=== PATIENT | female | born 2005 | race Caucasian/White ===

== ENCOUNTER 2023-12-23 09:42 | Outpatient (CLI) | payer OTHER, SELFPAY ==
[2023-12-23] VITALS (12 sets, daily range): BP systolic 126–158; BP diastolic 66–87; PULSE 75–91; RESP 16; TEMP 36.9; O2SAT 98; BMI 34.8
[2023-12-23 10:35] LABS: Hematocrit 37.9 % (37-47); Hemoglobin 11.9 g/dL (12.0-15.0); Mean Corp Hgb Conc 31.4 g/dL (32-36); Mean Corpuscular Hgb 24.4 pg (27.0-32.0); Mean Corpuscular Volume 77.8 fL (81-99); Mean Platelet Vol. 11.5 fl (6.2-12.0); Platelet Count 188 K/mm3 (150-450); RBC Distribution Width CV 13.8 % (11.6-14.6); RBC Distribution Width SD 38.5 fl (35.1-43.9); Red Blood Count 4.87 M/mm3 (4.2-5.4); White Blood Count 8.7 K/mm3 (4.4-11.0)
[2023-12-23 10:56] LABS: AST(SGOT) 21 U/L (15-37); Alanine Aminotransfer ALT/SGPT 14 U/L (13-56); Creatinine, Serum 0.72 mg/dL (0.55-1.02); EST Glomerular Filtration Rate 110 mL/min (>60); Est Glom Filt Rate - Afr Amer 133 mL/min (>60); Estimated Creatinine Clearance 142.06 ml/min; Uric Acid 7.7 mg/dL (2.6-6.0)
[2023-12-23 11:01] LABS: Protein:Creat Ratio 1987 mg/g CRE (0-200)
[2023-12-23] MEDS: NIFEdipine 30 MG Tablet PO (12:26)
--- NOTE | 2023-12-23 13:00 | OB.TRI.NOTE ---
HPI - General HPI Narrative MARCIA MILLER, is a 18 F at 35.5 weeks who presents to triage with elevated blood pressures at home. Patient reports she was seen in office 2 days ago and was started on blood pressure medications but has not taken to date. She is monitoring her BP at home and today was getting readings of 160/101 and 132/106. PFSH PFS Medical History Non-smoker Gestational diabetes Home Medications ?Medication ?Instructions ?Recorded ?Last Taken ?Type vit no.95-ferrous 1 tab PO DAILY 12/01/23 12/16/23 08:00 History fumarate 28 mg-folic acid 800 mcg 1 TAB tablet () Allergy/AdvReac Type Severity Reaction Status Date / Time sweet potato Allergy Unknown PT UNSURE Verified 12/23/23 10:16 OF REACTION No Known Drug Allergies AdvReac Mild Other Verified 12/23/23 10:17 Surgical History (Updated 12/01/23 @ 12:56 by Daniella Ballard) History of nasal surgery History of spinal fusion for scoliosis Social History Smoking Status: Never smoker ROS Eyes Eyes: Denies blurry vision Cardiovascular Cardiovascular: Reports none; Denies chest pain at rest, chest pain with activity or dizziness Respiratory/Chest Respiratory/Chest: Denies cough or dyspnea Gastrointestinal Gastrointestinal: Reports none and other; Denies diarrhea or vomiting Genitourinary Genitourinary: Denies dysuria Musculoskeletal Musculoskeletal: Reports none Integumentary Integumentary: Reports none; Denies rash Neurologic Neurologic: Denies dizziness, headache(s) or other visual disturbances Psychiatric Psychiatric: Reports none Physical Exam Const alert and no apparent distress General Appearance: cooperative Orientation / Consciousness: awake Exam Limitations: no limitations HEENT normocephalic Eyes General Eye: normal appearance of both eyes Neck full ROM Chest inspection of chest normal Resp normal respiratory effort and normal air movement Effort and Inspection: symmetric chest movement Auscultation: clear to auscultation bilaterally Cardio regular rate GI soft to palpation, non-tender and non-distended Inspection: and other Back/Spine normal ROM Extremity full ROM, normal capillary refill and no calf tenderness Skin no rashes or lesions noted Neuro oriented x3 and CN's II-XII intact bilaterally Psych mental status grossly normal NST FHR Rate Baby A Baseline: 125 Variability:: Moderate Accelerations:: 15 x 15 Decelerations:: None NST Reactive:: Yes FHR Category:: Category I Uterine Activity:: Irregular Assessment & Plan (1) 35 weeks gestation of : (2) Pre-eclampsia: (3) Elevated blood pressure reading: PLAN: Plan No severe range pressures in triage NST reactive PIH labs collected and sent S/P Steroid injection (x1 only due to patient having a reaction and did not receive 2nd dose) Procardia 30 mg XL PO x1 dose now Patient to picking supervisor BP medications and take according to directions Continue to monitor BP at home and report any readings >160/110 D/C home with follow up in office tomorrow Dr. García involved with orders and plan of care
== END 2023-12-23 12:28 | disposition home or self-care (01) ==
LOC: WPOUT 10:00 → WP 10:01
PROVIDERS: Referring Provider Advanced Practice Midwife; Visit Provider Advanced Practice Midwife
DX: O14.93 Unspecified pre-eclampsia, third trimester (principal); Z3A.35 35 weeks gestation of pregnancy
CPT/HCPCS: 36415; 59025; 59050; 82565; 82570; 84156; 84450; 84460; 84550; 85027; 99221; G0378

== ENCOUNTER 2023-12-26 19:16 | Inpatient (IN) | payer OTHER, SELFPAY ==
[2023-12-26 19:18] VITALS: BMI 34.9
[2023-12-26 19:35] VITALS: PULSE 77; RESP 14; TEMP 37; O2SAT 98
[2023-12-26 19:36] VITALS: BP 147/81; PULSE 78; TEMP 37
[2023-12-26 20:07] LABS: Absolute Neutrophil Count 6.6 X10^3/uL (2.0-7.7); Basophil# 0.02 X10^3/uL; Basophil% 0.2 % (0-1); Eosinophil# 0.08 X10^3/uL; Eosinophils% 0.8 % (0-5); Hematocrit 36.3 % (37-47); Hemoglobin 11.6 g/dL (12.0-15.0); Lymphocyte % 18.6 % (19-41); Mean Corpuscular Hgb 24.8 pg (27.0-32.0); Mean Corpuscular Volume 77.7 fL (81-99); Mean Platelet Vol. 11.5 fl (6.2-12.0); Monocyte# 1.15 X10^3/uL; Monocyte% 11.9 % (0-10); NRBC Flagged by Analyzer 0 % (0-5); Neutrophil # 6.57 X10^3/uL (2.7-7.7); Neutrophil % 67.9 % (47-70); Platelet Count 209 K/mm3 (150-450); RBC Distribution Width CV 14.1 % (11.6-14.6); RBC Distribution Width SD 39.3 fl (35.1-43.9); Red Blood Count 4.67 M/mm3 (4.2-5.4); White Blood Count 9.7 K/mm3 (4.4-11.0)
[2023-12-26 20:44] LABS: Bedside Glucose 85 mg/dL (74-106)
[2023-12-26 21:04] LABS: Bedside Glucose 87 mg/dL (74-106)
[2023-12-26] MEDS: miSOPROStol 25 MCG TABLET PO (21:10)
[2023-12-26] MEDS: NIFEdipine 30 MG Tablet PO (21:10)
--- NOTE | 2023-12-26 22:27 | PCM.HP.OB ---
HPI - General General Date of Admission: 12/26/23 HPI Narrative MARCIA MILLER, is a 18 F who presents at 36w1d for induction of labor due to preeclampsia with increasing Urine P/C ratio, uric acid, and blood pressure. Maternal Data Information NICHOLAS Calculator Estimated Delivery Date Method Current WG Current Estimate 01/22/24 Manual 36w 1d PFSH PFSH Medical History (Updated 12/26/23 @ 22:35 by Darcy Biswas CNM) Non-smoker Gestational diabetes Home Medications ?Medication ?Instructions ?Recorded ?Last Taken ?Type vit no.95-ferrous 1 tab PO DAILY ask provider 12/01/23 12/16/23 08:00 History fumarate 28 mg-folic acid 800 mcg 1 TAB tablet () nifedipine 30 mg tablet,extended 30 mg PO DAILY blood pressure 12/26/23 Unknown History release 24 hr (Procardia XL) Allergy/AdvReac Type Severity Reaction Status Date / Time shellfish derived Allergy Mild Food Verified 12/26/23 19:56 Allergy sweet potato Allergy Unknown PT UNSURE Verified 12/23/23 10:16 OF REACTION No Known Drug Allergies AdvReac Mild Other Verified 12/23/23 10:17 Surgical History (Updated 12/26/23 @ 22:34 by Darcy Biswas CNM) History of surgery History of nasal surgery History of spinal fusion for scoliosis Social History Smoking Status: Former smoker History Elective abortions Hx Para 0 Spontaneous abortions Hx # Term Pregnancies Ectopic pregnancies Hx # Pregnancies Multiple births # of living children ROS Constitutional Constitutional: Reports systems reviewed and no addt'l complaints, except as documented; Denies headache(s) Eyes Eyes: Denies acute decrease in peripheral vision, blurry vision or change in vision ENT HEENT: Reports systems reviewed and no addt'l complaints, except as documented Cardiovascular Cardiovascular: Denies chest pain or dizziness Respiratory/Chest Respiratory/Chest: Denies cough, dyspnea, dyspnea on exertion, shortness of breath at rest or shortness of breath with exertion Gastrointestinal Gastrointestinal: Denies abdominal pain, diarrhea, nausea or vomiting Genitourinary Genitourinary: Denies abdominal discomfort Musculoskeletal Musculoskeletal: Denies limited range of motion Integumentary Integumentary: Reports systems reviewed and no addt'l complaints, except as documented Neurologic Neurologic: Reports systems reviewed and no addt'l complaints, except as documented Psychiatric Psychiatric: Reports systems reviewed and no addt'l complaints, except as documented Endocrine Endocrinology: Reports systems reviewed and no addt'l complaints, except as documented Hematologic/Lymphatic Hematologic/Lymphatic: Reports systems reviewed and no addt'l complaints, except as documented Allergic/Immunologic Allergic/Immunologic: Reports systems reviewed and no addt'l complaints, except as documented Vital Signs Vital Signs Vital Signs: 12/26/23 19:35 12/26/23 19:35 12/26/23 19:35 Temperature Temperature Source Temporal Pulse Rate 77 Respiratory Rate Blood Pressure BP Systolic BP Diastolic Pulse Ox 98 12/26/23 19:35 12/26/23 19:35 12/26/23 19:36 Temperature 98.6 F Temperature Source Pulse Rate Respiratory Rate 14 Blood Pressure 147/81 H BP Systolic 147 BP Diastolic 81 Pulse Ox 12/26/23 19:36 12/26/23 19:36 Temperature 98.6 F Temperature Source Pulse Rate 78 Respiratory Rate Blood Pressure BP Systolic BP Diastolic Pulse Ox Weight Weight: 210 lb Body Mass Index (BMI) 34.9 Physical Exam Const alert and oriented x3 General Appearance: cooperative Orientation / Consciousness: awake, oriented to person, oriented to place and oriented to time Exam Limitations: no limitations HEENT normocephalic Head and Scalp: normal to inspection, normocephalic and atraumatic Face and Sinus: normal facial exam Eyes General Eye: normal appearance of both eyes Neck full ROM Chest Chest: symmetrical chest wall rise Resp normal respiratory effort and normal air movement Auscultation: clear to auscultation bilaterally Cardio regular rate, regular rhythm, S1 normal heart sound, S2 normal heart sound, no murmurs, no rub, no gallops and no clicks GI normal to inspection, nondistended, normoactive bowel sounds and non-tender appearance of the vagina normal Narrative: 1cm/50%/-3 IBOW. Chapin inserted through cervix without difficulty, 30ml NS instilled Bladder / Kidney Exam: no CVA tenderness Back/Spine normal ROM Extremity normal to inspection and full ROM Skin no rashes or lesions noted Neuro oriented x3, CN's II-XII intact bilaterally and moves all extremities Sensorium / Orientation: awake, alert and oriented to person Motor Exam: clonus absent Deep Tendon Reflexes: Rt Patellar (L4): 2+ and Lt Patellar (L4): 2+ Labs Labs Labs: Blood Type O POSITIVE Antibody Screen NEGATIVE Hct 36.3 % (37-47) L Hgb 11.6 g/dL (12.0-15.0) L Syphilis Total Ab Pending GBS negative RPR negative Rubella Immune O positive HIV negative HBsAG negative HepC negative Assessment & Plan (1) Pre-eclampsia: (2) 36 weeks gestation of : (3) GDM, class A1: (4) PTSD (post-traumatic stress disorder): (5) ADHD: (6) History of spinal fusion: COMMENT: Spinal fusion to L3, anesthesia consult completed. (7) Late care: (8) Obesity affecting : (9) alcohol syndrome: PLAN: Plan 1) Admit to labor and delivery 2) Routine labs 3) Continuous EFM 4) Pain management upon request 5) Preeclampsia labs 6) Diabetic protocol 7) Cytotec PO and chapin for cervical ripening and then pitocin. 8) collaborative physician and notified of patient status, above assessment, and plan.
[2023-12-26 23:03] LABS: ALB/GLOB Ratio 0.6 RATIO (0.9-2.4); AST(SGOT) 20 U/L (15-37); Alanine Aminotransfer ALT/SGPT 17 U/L (13-56); Albumin, Serum 2.6 g/dL (3.2-5.0); Alkaline Phosphatase 162 U/L (45-117); Anion Gap 9 (5-15); BUN 15 mg/dL (7-18); BUN/Creat Ratio 16.6 RATIO (10-20); Calcium,Total 9.1 mg/dL (8.5-10.1); Chloride 110 mmol/L (98-107); EST Glomerular Filtration Rate 84 mL/min (>60); Est Glom Filt Rate - Afr Amer 102 mL/min (>60); Estimated Creatinine Clearance 113.81 ml/min; Globulin 4.1 g/dL (2.2-4.2); Glucose 81 mg/dL (74-106); Protein, Total 6.7 g/dL (6.4-8.2); Sodium Level 140 mmol/L (136-145); Uric Acid 8.6 mg/dL (2.6-6.0)
[2023-12-26 23:04] VITALS: PULSE 76; RESP 14; TEMP 36.7; O2SAT 98
[2023-12-26 23:05] VITALS: BP 141/81; PULSE 73
[2023-12-26 23:30] LABS: Protein, Urine (Random) 366.8 mg/dL (<11.9); Protein:Creat Ratio 1993 mg/g CRE (0-200)
[2023-12-27] VITALS (27 sets, daily range): BP systolic 112–148; BP diastolic 60–106; PULSE 73–114; RESP 14–18; TEMP 36.6–37.7; O2SAT 97–100
[2023-12-27] MEDS: Lactated Ringers 1,000 ML 50 ML IV (01:01)
[2023-12-27] MEDS: Oxytocin 15 Units/NS 250ml 15 UNITS/250 ML IV.SOLN 2 UNITS IV (01:01)
[2023-12-27 01:21] LABS: Bedside Glucose 87 mg/dL (74-106)
[2023-12-27 05:40] LABS: Bedside Glucose 84 mg/dL (74-106)
--- NOTE | 2023-12-27 08:25 | PCM.PN.BLA ---
Progress Note Pt seen at bedside discussed Plan of care- AROM. Pt unable to get epidural for pain relief due to spinal fusion per anesthesia. AROM perform- does not tolerate vaginal exam well. Small amount of clear fluid. /2. Discussed with patient all options for pain mgmt including Nitrous, water therapy, if patient can't tolerate pain she was given option for primary elective cs. pt understands this will be under general anesthesia. all questions answered.
[2023-12-27] MEDS: Acetaminophen 500 MG Tablet PO (08:28)
[2023-12-27] MEDS: Sodium Citrate/Citric Acid 30 ML UDC PO (09:33)
--- NOTE | 2023-12-27 09:38 | PCM.PN.BLA ---
Progress Note After discussion regarding pain during labor I was informed that patient had decided she would like to proceed with elective CS. I discussed the case with Dr. Herrera in regards to options for Spinal vs epidural and what her PEDS ortho had reference in EPIC note - he too agrees her pain will likely not be adequate controlled for delivery. This was a shared medical decision and patient was given options to proceed with induction of labor or elective Primary cs and has chosen to proceed with elective Primary CS. All teams notified.
[2023-12-27] MEDS: Cefazolin 2 GM in 0.9% Normal Saline (100mL Bag) 100 ML IV (09:45)
--- NOTE | 2023-12-27 09:57 | PLAC_PTH ---
PATIENT: MARCIA MILLER LOC: [facility] U#:[id number] AGE/SX: 18/F ROOM: [facility] RE12/26/[address]: Dr. Colleen Gonzalez, MDDOB: 2005 BED: 1 DIS: 12/31/2023 SPEC #: [id number] RECD: 12/28/23 11:11 STATUS: JOSE MELANY #: [id number] ADAN: 12/27/23 09:[address]: Colleen Gonzalez DEPT: SURGICAL PATHOLOGY RECD BY: Bronson Marcus ENTERED: 12/28/23 11:11 SP TYPE: PLACENTA OTHR DR: Darcy Biswas CNM No Primary Care Phys Tissues: Placenta, NOS Procedures: Surgery Specimen Level V HEADER OPERATION: Primary section PRE-OP DIAGNOSIS: Delivery TISSUE SUBMITTED: Placenta MICROSCOPIC DIAGNOSIS Ying placenta (363 gm): Umbilical cord - Trivascular with no evidence of inflammation. Placental membranes - Mild decidual acute inflammation. Placental disc - Multiple foci of villous hemangiomas with focal degenerative change, increased intraparenchymal microcalcifications, villous syncytial knots and fibrin plaques. AM: 12/29/2023 COMMENT Case has been reviewed in consultation with Dr. Charles who concurs with the above diagnosis. IDC:ZE Called the office on 12/27/2023 and spoke to the nurse about the Chromosomal study that were on the order for placenta. Nurse asked Dr. Camacho if Chromosomal study was to be done and Dr. Camacho said that she only wants routine pathology study for the placenta and no chromosomal studies. MICROSCOPIC DESCRIPTION Slides are reviewed. GROSS DESCRIPTION SPECIMEN: PLACENTA / CLINICAL INFORMATION: A. Weight: 2.19 kg B. Gestational Age: 36 weeks C. Sex: Male PLACENTAL WEIGHT (POST FIXATION):363 gm PLACENTAL DIMENSIONS: 14.0 x 13.0 x 4.0 cm PLACENTAL SHAPE: Usual ovoid and is partly disrupted, however appears to be complete PLACENTAL WEIGHT FOR GESTATIONAL AGE: Within 10-99th percentile MEMBRANES - Present A. Insertion: Marginal B. Site of rupture from edge: at the margin of placental disc C. Color of membrane: Mauricio-morgan D. Abnormalities: None UMBILICAL CORD - Present A. Color: Mauricio-morgan B. Insertion: Paracentral C. Length: 28.0 cm D. Diameter: 0.8 cm E. Number of vessels: Three F. Abnormalities: None PLACENTAL DISC - Present A. Color of surface: Mauricio-morgan B. surface abnormalities: None C. Maternal cotyledons: Intact with minimal tears D. Attached retro placental clot: No clot E. Cut surface: Dark red and spongy F. Lesions: None G. Separate clot: Absent SECTIONS SUBMITTED: Dr. Charles (6 cassettes) - remove if Dr. Paz 1. Membrane roll 2. Cord, maternal end 3. Cord, end 4. Placental disc, and maternal surfaces 5. Placental disc, and maternal surfaces 6. Placental disc, and maternal surfaces SJ. 12/28/2023 TC:5 CPT: 85982
[2023-12-27] MEDS: Azithromycin 500 MG in Dextrose 5%-Water (250mL Bag) 250 ML 250 MG IV (10:13)
--- NOTE | 2023-12-27 10:40 | EX.PCM.OBRPT ---
Maternal Data Information NICHOLAS Calculator Estimated Delivery Date Method Current WG Current Estimate 01/22/24 Manual 36w 2d Details Operative Information Date of Procedure: 12/27/23 Pre-Operative Diagnosis: Preeclampsia w/o severe features, 36 weeks, GDMA1, obesity affecting , History of spinal fusion, elective primary c/s- due to poor pain tolerance Post-Operative Diagnosis: same- live male infant Indications Narrative: patient with h/o Spinal fusion- case was previously discussed with her PEDS ortho who stated would unlikely be able to get spinal or epidural. case discussed with anesthesia at [facility] who agreed that her pain would likely not be controlled due to fusion of epidural space. pt was counseled on pain management options- does not tolerate exams, is painful and not in labor. after discussion - shared medical decision was to perform elective primary c/s. Classification: KIERSTEN (at discretion of anesthesia and staffing availability - this was non emergent but did not want patient to become more uncomfortable.) Procedure Type: low transverse purse seining hand #1: Aria Moore purse seining hand #2: elizabeth tyson Type of Anesthesia: General Special Medications: hemoblast Antibiotic Given: Ancef 2 grams IV x1 and Zithromax 500 mg/5 mL X1 Drain: Webb to straight drain Estimated Blood Loss: 600 Fluids Replaced: 800 Procedure Start Time: 09:55 Procedure Stop Time: 10:27 Time of Delivery: 09:57 Findings Description of Procedure: After informed consent was obtained the patient was taken the operating room She was then placed in the supine position. She was prepped and draped in the normal sterile fashion. General Anesthsia was induced- At this time a Pfannenstiel skin incision was made with a knife was carried down to the underlying layer of the fascia. The fascial incision was then extended laterally using traction. Rectus muscles were then in the midline bluntly and peritoneum was entered bluntly. Gentle opposing traction was placed. At this time the vesicouterine peritoneum was identified. Scalpel was used to make a uterine incision in a low transverse fashion. The uterus was then entered bluntly gentle opposing traction was placed to extend this incision. Membranes were ruptured clear. Infant's head was brought to the uterine incision was delivered atraumatically. Nuchal x 1, tight- reduced. was vigorous at delivery - no delayed cord clamping. Cord was clamped and cut infant was handed to the waiting nursery team. The Placenta was removed from the uterus. The uterus was then removed from the abdominal cavity. The uterus was cleared of all clots and debris using a lap. At this time the uterine incision was reapproximated using #1 Vicryl in a running locked fashion. Hemostasis was appreciated. Posterior cul-de-sac was then cleared of all clots and debris. Uterus was placed back in the abdominal cavity. Gutters were cleared of all clots and debris. Uterine incision was reevaluated and noted to be of excellent hemostasis. Hemoblast placed over incision. At this time the peritoneum was grasped with Kellys reapproximated using #2 Vicryl suture in a running fashion. Fascia was then reapproximated using #1 PDS in a running fashion. Subcu layer was irrigated with NS, hemoblast placed, it was reapproximated with #3 vicryl suture in an interrupted fashion. Subcu layer was closed using 4-0 Viryl in a subcu fashion. Dry sterile dressing was applied. Instrument lap needle count correct ?2. Anticipated normal postoperative course. Presentation: Positive for Vertex Amniotic Membrane Rupture Type: Artificial Amniotic Fluid Description: Clear Placental Delivery Description: Manual Removal Placenta Disposition: Routine to Lab Specimen(s) Sent to Pathology: placenta Cord Vessel Description: 3 Vessels Cord Entanglement: Around neck x 1, tight Nuchal Cord Compression: Without compression Cord Gases: ABG and VBG Infant A Gender: Male (1 minute): 8 (5 minute): 9 Delayed Cord Clamping: No Complications Risks of Surgery Discussed w/Patient: Bleeding, Anesthesia Risks, Infection, Need for Future C-Sections (discussed with SO this would be in her best interest ) and Injury to surrounding structure(s) including bowel and bladder Complications: none
[2023-12-27] MEDS: Oxytocin 15 Units/NS 250ml 15 UNITS/250 ML IV.SOLN 83 UNITS IV (10:50)
[2023-12-27 11:20] LABS: Pathology Specimen OB SEE PATHOLOGY REPORT
[2023-12-27] MEDS: Ketorolac 30 MG/ML Syringe IV ×3 (11:34→23:11)
[2023-12-27] MEDS: NIFEdipine 30 MG Tablet PO (11:54)
[2023-12-27 13:16] LABS: Bedside Glucose 109 mg/dL (74-106)
[2023-12-27] MEDS: oxyCODONE 5 MG Tablet PO ×2 (13:45→20:08)
[2023-12-27] MEDS: Lactated Ringers 1,000 ML 100 ML IV (13:51)
--- NOTE | 2023-12-27 15:07 | NURSING ---
Call placed to [facility] and left message with nurse Kvng Hair RN for Dr. Camacho. Reported the last 8 BP's during pts recovery and that she had her 30mg of Procardia XL at 1200. Blood Pressures are running in the 140's for systolic and ranging 80's to 100's diastolic. Waiting to hear back from Dr. Camacho about whether she would like to increase her BP medication or add another one.
--- NOTE | 2023-12-27 15:13 | NURSING ---
Nurse Reginaldo RN from [facility] calls back. States that she spoke with Dr. Camacho and she does not want to add medication or increase her procardia at this time. Reporting off primary care to Jayy Zarate RN at this time. Nicola Zarate will report higher trending BP's to Dr. Camacho from here.
[2023-12-27] MEDS: Acetaminophen 500 MG Tablet 1000 MG PO ×2 (15:15→21:04)
--- NOTE | 2023-12-27 17:26 | NURSING ---
patient unsteady from csection, has not been out of bed, RN to assist when patient gets out of bed for first time
[2023-12-27] MEDS: HYDROmorphone 1 MG/ML Syringe IV (23:03)
[2023-12-27] MEDS: Enoxaparin 40 MG/0.4 ML Syringe SC (23:03)
[2023-12-27] MEDS: 0.9% Saline Lock 10 ML Syringe IV (23:04)
--- NOTE | 2023-12-27 23:41 | NURSING ---
This RN in Room with Kaela Moralez RN when This Rn could not resign into computer to scan medications. This RN pulled dilauded out of [employer] and was in room and gave dilauded with Kaela Moralez who scanned medications.
--- NOTE | 2023-12-28 01:38 | NURSING ---
This RN at bedside emptying catheter. Urine is very dark yellow and concentrated. Pt states she was not really drinking much water. This RN educated at beginning of shift about needing to continue to orally hydrate after her bag of LR was completed around 2300 with a goal of discontinue catheter tonight and being able to void in the toilet. Patient needs extensive help when getting out of bed due to the pain. This RN just emptied catheter for 300 cc out and hourly output equaling been 25 ml/hr.
[2023-12-28] MEDS: Acetaminophen 500 MG Tablet 1000 MG PO ×4 (03:04→21:58)
[2023-12-28 03:15] VITALS: BP 134/82; PULSE 79; RESP 16; TEMP 36.8; O2SAT 97
[2023-12-28] MEDS: Ketorolac 30 MG/ML Syringe IV (05:05)
[2023-12-28 05:48] LABS: Bedside Glucose 82 mg/dL (74-106)
[2023-12-28 06:33] LABS: Hematocrit 33.4 % (37-47); Hemoglobin 10.3 g/dL (12.0-15.0); Mean Corp Hgb Conc 30.8 g/dL (32-36); Mean Corpuscular Hgb 24.3 pg (27.0-32.0); Mean Platelet Vol. 11.8 fl (6.2-12.0); Platelet Count 186 K/mm3 (150-450); RBC Distribution Width CV 14.6 % (11.6-14.6); RBC Distribution Width SD 41.1 fl (35.1-43.9); Red Blood Count 4.23 M/mm3 (4.2-5.4); White Blood Count 11.5 K/mm3 (4.4-11.0)
--- NOTE | 2023-12-28 08:39 | PN.OBGYN_ITS ---
Subjective Subjective Pain controlled Objective Data Objective Data Vital Signs: Vital Signs Temp Pulse Resp BP Pulse Ox O2 Del Method 98.2 F 79 16 134/82 H 97 Room Air 12/28/23 03:15 12/28/23 03:15 12/28/23 03:15 12/28/23 03:15 12/28/23 03:15 12/28/23 03:15 Oxygen Delivery Method Room Air Weight: 210 lb Body Mass Index (BMI) 34.9 Intake & Output: Intake and Output for Last 24 Hours 12/26/23 12/27/23 12/28/23 23:59 23:59 23:59 Intake Total 1865.00 / 1865.00 1000 / 1000 Output Total 900 / 900 300 / 300 Balance 965.00 / 965.00 700 / 700 Lab / Micro Data 12/28/23 06:00 12/26/23 19:50 Labs: Laboratory Results - last 24 hr 12/27/23 12:26: POC Glucose 109 H 12/28/23 05:24: POC Glucose 82 12/28/23 06:00: WBC 11.5 H, RBC 4.23, Hgb 10.3 L, Hct 33.4 L, MCV 79.0 L, MCH 24.3 L, MCHC 30.8 L, RDW Std Deviation 41.1, RDW Coeff of Kristen 14.6, Plt Count 186, MPV 11.8 Physical Exam Const alert, oriented x3 and no apparent distress HEENT normocephalic GI soft to palpation, non-tender and non-distended GI Narrative: fundus firm, mid & below umbilicus Incision - bandage c/d/i Extremity normal to inspection and no calf tenderness Assessment & Plan (1) Pre-eclampsia: QUALIFIERS: Trimester: unspecified trimester Qualified Code(s): O 14.90 - Unspecified pre-eclampsia, unspecified trimester COMMENT: POD#1 (2) GDM, class A1: (3) PTSD (post-traumatic stress disorder): (4) Delivery by section: PLAN: Plan Heme - HDS, cbc reviewed ID - AF, no signs infection GI/ - no issues PreE - continue procardia Routine care
[2023-12-28 10:00] VITALS: PULSE 88; RESP 16; TEMP 36.6
[2023-12-28] MEDS: Senna/Docusate Sodium 1 Tablet PO (10:12)
[2023-12-28] MEDS: NIFEdipine 30 MG Tablet PO (10:12)
[2023-12-28] MEDS: Ibuprofen 600 MG Tablet PO ×3 (11:44→23:24)
[2023-12-28] MEDS: oxyCODONE 5 MG Tablet PO (14:29)
[2023-12-28 15:52] VITALS: BP 135/71; PULSE 82; RESP 16; TEMP 36.4; O2SAT 97
[2023-12-28 20:27] VITALS: BP 143/85; PULSE 84; RESP 16; TEMP 36.6; O2SAT 98
[2023-12-29] MEDS: Enoxaparin 40 MG/0.4 ML Syringe SC ×2 (01:32→23:52)
[2023-12-29] MEDS: oxyCODONE 5 MG Tablet PO ×3 (01:38→20:20)
[2023-12-29 02:30] VITALS: BP 135/74; PULSE 83; RESP 16; TEMP 36.4; O2SAT 95
[2023-12-29] MEDS: Acetaminophen 500 MG Tablet 1000 MG PO ×4 (04:00→22:10)
[2023-12-29] MEDS: Ibuprofen 600 MG Tablet PO ×4 (05:34→23:51)
--- NOTE | 2023-12-29 08:26 | PCM.PROGNOTE ---
Subjective Subjective patient seen at bedside, doing well. Patient reports good pain control. lochia mild. breast and bottle feeding. BM x 1, voiding w/o difficulty. tolerating regular diet. Objective Data Objective Data Vital Signs: Vital Signs Temp Pulse Resp BP Pulse Ox O2 Del Method 97.6 F L 83 16 135/74 H 95 Room Air 12/29/23 02:30 12/29/23 02:30 12/29/23 02:30 12/29/23 02:30 12/29/23 02:30 12/29/23 02:30 Oxygen Delivery Method Room Air Weight: 95.254 kg Body Mass Index (BMI) 34.9 Intake & Output: Intake and Output for Last 24 Hours 12/27/23 12/28/23 12/29/23 23:59 23:59 23:59 Intake Total 1865.00 / 1865.00 1000 / 1000 Output Total 900 / 900 1150 / 1150 Balance 965.00 / 965.00 -150 / -150 Lab / Micro Data 12/28/23 06:00 12/26/23 19:50 Physical Exam Narrative Abd: dressing dry and intact. Fundus firm. mild tenderness to palpation- appropriate. Const alert and oriented x3 General Appearance: cooperative HEENT normocephalic Neck General: normal visual inspection GI soft to palpation and non-distended GI Narrative: Fundus firm Extremity normal to inspection and no calf tenderness Skin no rashes or lesions noted Neuro oriented x3 and CN's II-XII intact bilaterally Psych mental status grossly normal Assessment & Plan Assessment/Plan (1) Delivery by section: (2) alcohol syndrome: (3) Obesity affecting : (4) Late care: (5) History of spinal fusion: (6) ADHD: (7) GDM, class A1: (8) PTSD (post-traumatic stress disorder): PLAN: Plan POD#2 , Doing well Routine care pain mgmt ambulation baby in SCN Continue to monitor and will plan for dc home or to hotel status tomorrow- Keep for pain mgmt today monitor BP- Continue Procardia 30xl - well controlled today
[2023-12-29 09:41] VITALS: BP 138/83; PULSE 89; RESP 16; TEMP 36.6
[2023-12-29] MEDS: NIFEdipine 30 MG Tablet PO (10:33)
[2023-12-29] MEDS: Senna/Docusate Sodium 1 Tablet PO (10:33)
[2023-12-29 16:06] VITALS: BP 142/81; PULSE 87; RESP 16; TEMP 36.9
[2023-12-29] MEDS: SimETHICONE 80 MG Chewable Tablet PO (22:10)
[2023-12-29 22:13] VITALS: BP 137/85; PULSE 88; RESP 16; TEMP 36.8; O2SAT 100
[2023-12-30] MEDS: Acetaminophen 500 MG Tablet 1000 MG PO ×4 (04:29→23:20)
[2023-12-30 04:32] VITALS: BP 131/82; PULSE 70; RESP 16; TEMP 36.5; O2SAT 98
[2023-12-30] MEDS: Ibuprofen 600 MG Tablet PO ×4 (05:53→23:20)
[2023-12-30 08:00] VITALS: BP 134/75; PULSE 83; RESP 16; TEMP 36.6; O2SAT 100
[2023-12-30] MEDS: oxyCODONE 5 MG Tablet PO (08:33)
[2023-12-30] MEDS: Senna/Docusate Sodium 1 Tablet PO (08:33)
[2023-12-30] MEDS: NIFEdipine 30 MG Tablet PO (08:35)
--- NOTE | 2023-12-30 08:57 | PN.OBGYN_ITS ---
Subjective Subjective Denies complaints Objective Data Objective Data Vital Signs: Vital Signs Temp Pulse Resp BP Pulse Ox O2 Del Method 98 F 83 16 134/75 H 100 Room Air 12/30/23 08:00 12/30/23 08:00 12/30/23 08:00 12/30/23 08:00 12/30/23 08:00 12/30/23 08:00 Oxygen Delivery Method Room Air Weight: 210 lb Body Mass Index (BMI) 34.9 Intake & Output: Intake and Output for Last 24 Hours 12/28/23 12/29/23 12/30/23 23:59 23:59 23:59 Intake Total 1000 / 1000 Output Total 1150 / 1150 450 / 450 Balance -150 / -150 -450 / -450 Lab / Micro Data 12/28/23 06:00 12/26/23 19:50 Physical Exam Const alert, oriented x3 and no apparent distress HEENT normocephalic GI soft to palpation, non-tender and non-distended GI Narrative: fundus firm, mid & below umbilicus Incision - bandage c/d/i Extremity normal to inspection and no calf tenderness Assessment & Plan (1) Delivery by section: COMMENT: POD#1 (2) GDM, class A1: (3) Pre-eclampsia: QUALIFIERS: Trimester: unspecified trimester Qualified Code(s): O 14.90 - Unspecified pre-eclampsia, unspecified trimester PLAN: Plan BP's normal to minimal elevation Baby in [facility] Routine care and plan for d/c later today or tomorrow
[2023-12-30 12:00] VITALS: BP 138/80; PULSE 111; RESP 20; TEMP 36.6
--- NOTE | 2023-12-30 13:30 | CASEMGMT ---
Social Work Assessment Labor and Delivery Unit Patient Address:[address] [place] [address] Phone number: [phone] Date of Referral:12/27/23 Time of Referral:? 1413 Referred By: Dr. Gonzalez Date of Intervention: ??12/28/23 Time of Intervention:? 1200 Reason for Referral:? PTSD, alcohol syndrome Sw completed chart review and acknowledges social work consult due to maternal mental health history of PTSD and having been diagnosed with alcohol syndrome. Sw presented to bedside and introduced self to mother of baby (MOB- Radha) and father of baby (FOB- Tyron). Sw explained reason for sw involvement and completed psychosocial assessment. History obtained from: medical records, MOB and FOB. Household composition: Currently residing in the family home is MOB, FOB and baby when ready for discharge. Parents deny any housing concerns, reporting that their house is safe and secure. Patient's parent/guardian status:? ?Parents have been together for three years after knowing each other for a long time as their moms are friends. No concerns reported of domestic violence or intimate partner violence. [place] baby is first baby for both parents. Medical History: ?ISIDRA is 18 year old female who is 1, para 0- now 1 following labor and delivery of . ISIDRA presented to hospital for scheduled induction of labor due to pre-eclampsia. ISIDRA required primary under general anesthesia on 12/27/23. Baby boy, named Rylan, was born weighing 4lb 13oz with apgars of 8 and 9 at one and five minutes of life, respectfully. Baby was transferred to [facility] due to low blood sugars and prematurity. No discharge date identified at this time. - ISIDRA reports that she has gone over to see baby once and did latch baby to breast to feed. - Since meeting with ISIDRA on 12/27, it is now 12/29 and staff continue to report that ISIDRA is doing well visiting with baby in special care and has been active in appropriate hands on care of . ISIDRA is feeding baby well and no ongoing concerns expressed at this time. Educational Status: Both parents graduated from high school, no advanced education. Both parents required educational assistance in school for disabilities. ISIDRA had an IEP to help her with Math and FOB states that he was on a 504 plan. MOB reports to learning best by doing hands on tasks. ? Financial Status: Both parents are gainfully employed outside of the home. DONAVAN works on a hog farm and is able to take two weeks off of work, more if necessary. 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 She states that she is able to take 12 weeks off of work, and may decide not to return after her maternity leave is over. Supplies: Parents have obtained all necessary baby supplies, including: car seat, safe sleep space, clothes, diapers and wipes. Childcare/Caregiver(s):?ISIDRA reports that she will be the primary caregiver to baby along with DONAVAN when he is not working. Transportation:?? Both parents report to having their drivers license and reliable vehicles, no barriers to transportation at this time. Programs/Agencies Involved: ???Parents deny being connected to any community resources that assist them financially as they are over income at this time. Jaden educated parents to look into resources through [employer] if ISIDRA does not return to employment after her maternity leave. Jaden stated they may be eligible for SNAP, WIC and other services. Parents express understanding. DONAVAN states that he has heard of WIC and was considering getting connected. Children Services/Legal Issues:?Both parents have history of children services involvement when they were children/ babies. Both parents have been adopted. No involvement as parents themselves. No issues or concerns warranting referral to be made at this time. Behavioral Health Issues: ??Mental Health History:?DONAVAN denies any mental health diagnoses. ISIDRA reports that she has ADHD. When ISIDRA was asked about alcohol syndrome, ISIDRA stated that she knows what that is, but did not seem to be aware that she has been diagnosed with it, or how alcohol syndrome affects development. Education provided by jaden. ?? Substance Use History:?Parents deny substance use prior to and during . ? Family History:??Jaden explained to parents that due to maternal biological mother using alcohol during her with ISIDRA, it has impacted ISIDRA's development and how her brain works. Jaden educated parents on importance of using healthy and appropriate coping skills when they are upset about something, opposed to seeking comfort from drugs or alcohol. Parents express understanding. ??? Drug Screens: No drug screens observed in chart review. Family/Social Stressors:? ISIDRA states that she was really worried and scared to deliver baby. MOB appears to still be in a lot of pain following delivery. Sw educated parents on how trauma and PTSD from our past can impact a mom during labor and delivery. MOB expressed understanding. MOB states that she thinks she is coping well, and has not been upset due to baby requiring admission to Special Care Nursery. MOB states that she knows that is where he needs to be in order to get healthy and be ready to go home. Support Systems: MOB identifies that FOB and her mom are her biggest supports. Depression/Shaken Baby/Safe Sleeping: Sw educated parents at length regarding signs and symptoms of baby blues and mood and anxiety disorders to be mindful of during this period. FOB states that he would be able to recognize if MOB were struggling with her mental health and he thinks that he would know how to help and support her. MOB states that she has her mom that she can talk to if she is ever struggling. Sw educated parents on shaken baby prevention and ABCs of safe sleep. MOB asked appropriate follow up questions. ASSESSMENT:? MOB and baby admitted following labor and delivery. MOB required unplanned under general anesthesia and her recovery has been extremely painful. Baby required transfer to [facility] due to prematurity and hypoglycemia. No discharge identified for baby at this time. Nursing staff initially expressed some concerns regarding ISIDRA's ability to provide care for baby, because during delivery she seemed younger than stated age, may have deficits due to alcohol syndrome. Sw continued to assess this concern on a daily basis since delivery. Nursing staff at this time report that ISIDRA has been engaged in hands on care of baby and completing feeds with baby at breast. MOB has been doing well since starting recovery from . It is also important to note that both parents have strong supports found in both sides of their family. FOB was also observed to be extremely involved and supportive to MOB and her needs. PLAN:?? No other services requested or indicated. MOB and baby to be discharged when medically ready. Parents were provided literature regarding: signs and symptoms of baby blues and mood and anxiety disorders, Help Me Grow, shaken baby prevention, ABCs of safe sleep and a list of county resources that are available for them should any needs present themselves. Yesi Cooper, RETICLE PRINTER, CLOCK AND WATCH HANDS DIPPER
[2023-12-30 15:59] VITALS: BP 141/89; PULSE 99; RESP 16; TEMP 36.9
[2023-12-30 19:30] VITALS: BP 136/75; PULSE 120; RESP 14; TEMP 36.9; O2SAT 98
[2023-12-30] MEDS: Enoxaparin 40 MG/0.4 ML Syringe SC (23:20)
[2023-12-31 03:10] VITALS: BP 136/89; PULSE 98; RESP 14; TEMP 36.9; O2SAT 99
[2023-12-31] MEDS: Acetaminophen 500 MG Tablet 1000 MG PO ×3 (05:25→17:54)
[2023-12-31] MEDS: Ibuprofen 600 MG Tablet PO ×3 (05:26→17:54)
[2023-12-31 07:42] VITALS: BP 134/91; PULSE 77; RESP 14; TEMP 36.8; O2SAT 98
[2023-12-31] MEDS: Senna/Docusate Sodium 1 Tablet PO (10:29)
[2023-12-31] MEDS: NIFEdipine 30 MG Tablet PO (11:09)
[2023-12-31 13:45] VITALS: BP 140/78; PULSE 94; RESP 16; O2SAT 99
--- NOTE | 2023-12-31 17:45 | PN.OBGYN_ITS ---
Subjective Subjective Doing well. Pain controlled. Breast feeding. Baby in SCN. Has procardia rx already. Discharging to hotel status Objective Data Objective Data Vital Signs: Vital Signs Temp Pulse Resp BP Pulse Ox O2 Del Method 98.2 F 94 16 140/78 H 99 Room Air 12/31/23 07:42 12/31/23 13:45 12/31/23 13:45 12/31/23 13:45 12/31/23 13:45 12/31/23 13:45 Oxygen Delivery Method Room Air Weight: 95.254 kg Body Mass Index (BMI) 34.9 Intake & Output: Intake and Output for Last 24 Hours 12/29/23 12/30/23 12/31/23 23:59 23:59 23:59 Output Total 450 / 450 Balance -450 / -450 Lab / Micro Data 12/28/23 06:00 12/26/23 19:50 Physical Exam Const alert General Appearance: cooperative GI GI Narrative: soft, moderate distention, fundus firm, appropriately tender. Abdominal bandage clean dry and intact Assessment & Plan (1) Delivery by section: COMMENT: POD#1 (2) Pre-eclampsia: QUALIFIERS: Trimester: unspecified trimester Qualified Code(s): O 14.90 - Unspecified pre-eclampsia, unspecified trimester (3) Gestational diabetes: QUALIFIERS: Gestational diabetes mellitus control: diet-controlled Trimester: third trimester Qualified Code(s): O24.410 - Gestational diabetes mellitus in , diet controlled PLAN: Plan discharge to hotel.
--- NOTE | 2023-12-31 17:47 | DS.PCM_ITS ---
Providers Date of Admission: 12/26/23 Date of Discharge: 12/31/23 Primary Care Physician: No Primary Care Phys Reason For Visit: PRIMARY CSECTION/C SECTION DELIVERED Diagnosis Discharge Diagnosis (1) Delivery by section: Status: Acute (2) Pre-eclampsia: Status: Acute Code(s): O14.90 - Unspecified pre-eclampsia, unspecified trimester Qualifiers: Trimester: unspecified trimester Qualified Code(s): O14.90 - Unspecified pre-eclampsia, unspecified trimester (3) Gestational diabetes: Status: Acute Code(s): O24.419 - Gestational diabetes mellitus in , unspecified control Qualifiers: Gestational diabetes mellitus control: diet-controlled Trimester: third trimester Qualified Code(s): O24.410 - Gestational diabetes mellitus in , diet controlled Plan discharge to [facility]. Medications at Discharge Home Medications vit no.95-ferrous fumarate 28 mg-folic acid 800 mcg tablet () 1 tab PO DAILY ask provider 12/01/23 nifedipine 30 mg tablet,extended release 24 hr (Procardia XL) 30 mg PO DAILY blood pressure 12/26/23 Hospital Course Operations section Procedures None Summary of Care Provided Minutes Spent on Discharge: 20 Hospital Course: Primary without complication. Pumping with the plan to breast feed. Baby in SCN Physical Exam Const alert General Appearance: cooperative GI GI Narrative: soft, moderate distention, fundus firm, appropriately tender. Abdominal bandage clean dry and intact Weight / BMI Weight Weight: 95.254 kg Body Mass Index (BMI) 34.9 ABG / Lab / Microbiology Data 12/28/23 06:00 12/26/23 19:50 D/C Instructions Discharge Diet: No restrictions May resume sexual activity in: 4-6 weeks Lifting Restrictions: 20 pounds Additional Activity Instructions: Nothing in the vagina for 4-6 weeks. You may return to work/school in 6 weeks. Call your doctor if your incision/area has: Continuous Slow Oozing, Sudden Increased Bleeding, Increased Pain/ Swelling, Increased Redness and Foul Smelling Discharge Call your doctor if you observe: Fever of 101 or Higher and Using more than 1 pad per hour (for 2 hours) Suture Line Care: Avoid Pulling/Pushing and Avoid Pinching/Bending Cleanse incision/area with: Keep Dressing Clean & Dry Please Follow Up With: Meenu Monahan MD When: Call to make an appointment for an incision check in 1-2 [phone]. You will need a post check in 6 weeks. Meaningful Use Info Meaningful Use Meaningful Use Diagnoses (Choose all that apply): None applicable Ischemic Stroke Statin Dosing Therapy Reference: STATIN DOSE THERAPY REFERENCE: * Patients > 75 years receive moderate or high dose statin therapy. * Patients 75 years or YOUNGER should receive HIGH intensity statin dose unless contraindicated. You will be required to document reason for non-treatment if statin daily dose does not meet guidelines. HIGH DOSE STATIN THERAPY DAILY Atorvastatin > than or = to 40 mg Rosuvastatin > than or = to 20 mg Amlodipine + Atorvastatin > than or = to 2.5/40 mg Ezetimibe + Simvastatin 10/80 mg Simvastatin 80mg Discharge Plan Admission Admit Date/Time: 12/26/23 19:16 Primary Reason for Your Visit: induction for pre E Attending Provider: Colleen Gonzalez Primary Care Provider: Care Physician,No Primary Consulting Providers: Darcy Biswas Instructions Patient Instructions: After a Discharge Orders/Prescriptions Prescriptions: Continued nifedipine [Procardia XL] 30 mg tablet extended release 24hr 30 mg PO DAILY PNV cmb#95-ferrous fumarate-FA [] 28 mg iron- 800 mcg tablet 1 tab PO DAILY Referrals / Follow Up: Care Physician,No Primary [Primary Care Provider] - Disposition Disposition (needs filled in before D/C Order can be placed): Home, Self Care
== END 2023-12-31 18:20 | disposition home or self-care (01) | DRG 788 ==
PROVIDERS: Advanced Practice Midwife; Admitting Provider Obstetrics & Gynecology; Referring Provider Obstetrics & Gynecology; Visit Provider Obstetrics & Gynecology
DX: O14.04 Mild to moderate pre-eclampsia, complicating childbirth (principal); O60.14X0 Preterm labor third trimester with preterm delivery third trimester, not applicable or unspecified; O24.420 Gestational diabetes mellitus in childbirth, diet controlled; O99.214 Obesity complicating childbirth; O69.81X0 Labor and delivery complicated by cord around neck, without compression, not applicable or unspecified; Z37.0 Single live birth; Z98.1 Arthrodesis status; Z3A.36 36 weeks gestation of pregnancy; Z87.898 Personal history of other specified conditions; Z87.891 Personal history of nicotine dependence
CPT/HCPCS: 59025; 59050; 80053; 82570; 82962; 84156; 84550; 85025; 85027; 86780; 86850; 86900; 86901; 88307; 99221; J7120; A4216; G0378; J2405